=== PATIENT | male | born 1950 | race Caucasian/White ===

== ENCOUNTER → 2018-08-02 | Outpatient (CLI) | payer OTHER ==
--- NOTE | 2018-08-02 11:55 | NM ---
EXAMINATION TYPE: NM hepatobiliary w EF DATE OF EXAM: 08/02/2018 COMPARISON: Gallbladder ultrasound 07/27/2018 HISTORY: Acute cholecystitis TECHNIQUE: After the intravenous administration of 5.19 mCi Tc 99m Mebrofenin hepatobiliary scintigra phy is performed. Immediate images post injection. FINDINGS: There is satisfactory initial accumulation of tracer by the liver. The gallbladder is visualized wit hin 10 minutes. The small bowel activity is noted within 38 minutes. At one hour 8 ounces of oral e nsure plus is given to mimic CCK and gallbladder ejection fraction is calculated at 20 %, abnormal. IMPRESSION: Abnormal low gallbladder ejection fraction suggests gallbladder dyskinesia
== END | disposition home or self-care (01) ==
LOC: RADNMMAIN 06:34
PROVIDERS: ATTEND Nurse Practitioner Acute Care
DX: R94.8 Abnormal results of function studies of other organs and systems (principal)
CPT/HCPCS: 78226; A9537

== ENCOUNTER 2018-08-20 07:31 | Day surgery (SDC) | payer OTHER ==
[2018-08-17 10:10] VITALS: BMI 35.7
[~2018-08-20 07:31] MED LIST: DEXAMETHASONE SOD PHOSPHATE 10 MG/ML 1 ML VIAL IV ONE; HEPARIN SODIUM,PORCINE 5,000 UNIT/ML 1 ML VIAL SQ ONE; LACTATED RINGERS 1,000 ML IV SCH; MIDAZOLAM 2 MG/2 ML VIAL IV PRN; ONDANSETRON 4 MG/2 ML VIAL IVP ONE; ceFAZolin IN SWFI 2 GM/20 ML SYRINGE IVP ONE
--- NOTE | 2018-08-20 09:00 | P.GSHP ---
History of Present Illness H&P Date: 08/20/18 Chief Complaint: Right upper quadrant pain This is a 68-year-old male presents today for laparoscopic cholestatic. Patient has issues with right quadrant pain. Recently found have gallstones. Past Medical History Past Medical History: Hyperlipidemia, Osteoarthritis (OA) Additional Past Medical History / Comment(s): frequent diarrhea History of Any Multi-Drug Resistant Organisms: None Reported Past Surgical History: Appendectomy Additional Past Surgical History / Comment(s): colonoscopy Past Anesthesia/Blood Transfusion Reactions: No Reported Reaction Smoking Status: Former smoker - Past Family History Mother Sister(s) Family Medical History: Cancer Additional Family Medical History / Comment(s): breast Brother(s) Family Medical History: Cancer Additional Family Medical History / Comment(s): lymphoma Medications and Allergies Home Medications Medication Instructions Recorded Confirmed Type Aspirin 81 mg PO DAILY 08/17/18 08/20/18 History Atorvastatin [Lipitor] 20 mg PO DAILY 08/17/18 08/20/18 History Glucosam/Guy-Msm1/C/Niranjan/Bosw 2 each PO DAILY 08/17/18 08/20/18 History [Glucosamine-Chondroitin Tablet] [place]-3 Fatty Acids/Fish Oil [Fish 2 each PO DAILY 08/17/18 08/20/18 History Oil 1,000 mg Softgel] Pnv No.95/Ferrous Fum/Folic AC 1 each PO DAILY 08/17/18 08/20/18 History [ Multivitamin Tablet] Allergies Allergy/AdvReac Type Severity Reaction Status Date / Time No Known Allergies Allergy Verified 08/20/18 08:23 Surgical - Exam Vital Signs Temp Pulse Resp BP Pulse Ox 98.0 F 64 16 131/75 98 08/20/18 08:13 08/20/18 08:13 08/20/18 08:13 08/20/18 08:13 08/20/18 08:13 - General well developed, no distress - Eyes PERRL - ENT normal pinna - Neck no masses - Respiratory normal expansion - Cardiovascular Rhythm: regular - Abdomen Abdomen: soft, non tender Assessment and Plan Assessment: Cholelithiasis We'll perform laparoscopic cholecystectomy
[2018-08-20] MEDS ORDERED: ePHEDrine SULFATE/0.9% NACL/PF 50 MG/5 ML SYRINGE IV ONE (09:16)
[2018-08-20] MEDS ORDERED: ROCURONIUM BROMIDE 10 MG/ML 10 ML VIAL IV ONE (09:16)
[2018-08-20] MEDS ORDERED: LIDOCAINE 1% INJ 10MG/ML (20 ML MDV) ONE (09:16)
[2018-08-20] MEDS ORDERED: KETOROLAC 30 MG/ML 1 ML VIAL ONE (09:16)
[2018-08-20] MEDS ORDERED: NEOSTIGMINE 1 MG/ML 10 ML VIAL ONE (09:16)
[2018-08-20] MEDS ORDERED: SUCCINYLCHOLINE CHLORIDE 100 MG/5 ML SYR IV ONE (09:16)
[2018-08-20] MEDS ORDERED: GLYCOPYRROLATE 0.2 MG/ML 2 ML VIAL ONE (09:16)
[2018-08-20] MEDS ORDERED: MIDAZOLAM 2 MG/2 ML VIAL ONE (09:16)
[2018-08-20] MEDS ORDERED: PROPOFOL 10 MG/ML 20 ML VIAL IV ONE (09:16)
[2018-08-20] MEDS ORDERED: fentaNYL (PF) 50 MCG/ML 2 ML AMP ONE (09:16)
[2018-08-20] MEDS ORDERED: SODIUM CHLORIDE 0.9% 50 ML with ceFAZolin 2,000 MG IV ONE ×2 (09:18)
[2018-08-20] MEDS ORDERED: BUPIVACAIN-EPI 0.5%-1:200,000 30 ML VIAL SQ ONE (09:39)
[2018-08-20] MEDS ORDERED: LACTATED RINGERS 1,000 ML IV ONE (10:02)
[2018-08-20 10:26] VITALS: TEMP 97.4
[2018-08-20] MEDS: HYDROmorphone 0.5 MG/0.5 ML SYRINGE IVP PRN ×2 (10:37→10:42)
--- NOTE | 2018-08-20 10:40 | P.OP ---
Date of Procedure: 08/20/18 Preoperative Diagnosis: Cholelithiasis Postoperative Diagnosis: Cholecystitis Meckel's diverticulum Procedure(s) Performed: Laparoscopic cholecystectomy Anesthesia: LOUISE Surgeon: Elio Sierra Estimated Blood Loss (ml): 5 Pathology: other (Gallbladder) Condition: stable Disposition: PACU Description of Procedure: The patient was placed on the operating table. The patient received a general endotracheal tube anesthesia. The patients abdomen was prepped and draped in the usual sterile fashion. Through an infraumbilical stab incision, the fascia of the anterior abdominal wall was grasped with a pair of Kochers and then the Veress needle was placed in the peritoneal cavity. Position of the Veress needle was confirmed with positive drop test. The abdomen was then insufflated. After adequate insufflation, the 10 mm trocar was placed in the peritoneal cavity. Following this the laparoscope was placed in the peritoneal cavity. The patient was placed in the head-up, right side up position and then a 5 mm trocar was placed in the right lateral and right subcostal position under direct visualization. A 8 mm trocar was placed in the epigastric position. The patient appeared to have a abnormalities small bowel. This was grasped and it appeared to be a Meckel's diverticulum. There was no significant inflammation around the diverticulum. He was elected to leave the diverticulum and observe the patient postoperative. The diverticulum was photographed. The gallbladder was grasped in the fundus and infundibulum. Traction on the gallbladder was placed in the lateral and the cephalad positions. The triangle of Calot was visualized.. The cystic duct was bluntly dissected until the union of the cystic duct and common bile duct was seen. The cystic duct was then divided and sealed with the Harmonic scissors. A PDS Endoloop was then placed throughout the cystic duct stump. The cystic artery divided and sealed with the Harmonic scissors. The gallbladder was then removed from the liver bed using Harmonic scissors. The gallbladder was then extracted through the epigastric port site. Operative field was checked for any bleeding spots and Harmonic scissors was used to coagulate the liver bed. The abdomen was irrigated. The trocars were removed. The skin was closed using interrupted 3- 0 Vicryl suture. Dermabond dressing were applied. The patient tolerated the procedure well.
[2018-08-20 11:15] VITALS: RESP 18
[2018-08-20 11:46] VITALS: BP 123/75; PULSE 83
== END 2018-08-20 12:33 | disposition home or self-care (01) ==
LOC: OR 07:31
PROVIDERS: ATTEND Surgery
DX: K80.10 Calculus of gallbladder with chronic cholecystitis without obstruction (principal); Q43.0 Meckel's diverticulum (displaced) (hypertrophic); E78.5 Hyperlipidemia, unspecified; M19.90 Unspecified osteoarthritis, unspecified site; K21.9 Gastro-esophageal reflux disease without esophagitis; Z87.891 Personal history of nicotine dependence; Z79.82 Long term (current) use of aspirin; Z79.899 Other long term (current) drug therapy
CPT/HCPCS: 88304; 47562; J2250; J1644; J1100; J2710; J2405; J2001; J3010; J1885; J0690; J0330; J2704; J1170

== ENCOUNTER 2019-08-27 09:39 | Day surgery (SDC) | payer OTHER ==
[2019-08-22 17:21] VITALS: BMI 35.7
[~2019-08-27 09:39] MED LIST changes: -DEXAMETHASONE SOD PHOSPHATE 10 MG/ML 1 ML VIAL IV ONE; -HEPARIN SODIUM,PORCINE 5,000 UNIT/ML 1 ML VIAL SQ ONE; -MIDAZOLAM 2 MG/2 ML VIAL IV PRN; -ONDANSETRON 4 MG/2 ML VIAL IVP ONE; -ceFAZolin IN SWFI 2 GM/20 ML SYRINGE IVP ONE
[2019-08-27 09:56] VITALS: RESP 16; TEMP 97.5
[2019-08-27] MEDS ORDERED: LIDOCAINE 1% 20 ML VIAL (10MG/ML) FOR IV START INTRADERMA ONE (10:09)
[2019-08-27] MEDS ORDERED: LIDOCAINE 1% INJ 10MG/ML (20 ML MDV) ONE (10:26)
[2019-08-27] MEDS ORDERED: PROPOFOL 10 MG/ML 20 ML VIAL IV ONE (10:26)
--- NOTE | 2019-08-27 10:27 | P.GSHP ---
History of Present Illness H&P Date: 08/27/19 Chief Complaint: History of colon polyps, diarrhea This a 69-year-old male who's had issues with diarrhea. Patient presents today for colonoscopy. He's had a. History of colon polyps. Past Medical History Past Medical History: Hyperlipidemia, Osteoarthritis (OA) Additional Past Medical History / Comment(s): Frequent diarrhea since 204, Hx colon polyps. History of Any Multi-Drug Resistant Organisms: None Reported Past Surgical History: Appendectomy, Cholecystectomy Additional Past Surgical History / Comment(s): Colonoscopy x2. Yinka Cataracts Past Anesthesia/Blood Transfusion Reactions: No Reported Reaction Smoking Status: Former smoker - Past Family History Mother Sister(s) Family Medical History: Cancer Additional Family Medical History / Comment(s): breast Brother(s) Family Medical History: Cancer Additional Family Medical History / Comment(s): lymphoma Medications and Allergies Home Medications Medication Instructions Recorded Confirmed Type Atorvastatin [Lipitor] 40 mg PO HS 08/17/18 08/27/19 History Glucosam/Guy-Msm1/C/Niranjan/Bosw 2 each PO DAILY 08/17/18 08/27/19 History [Glucosamine-Chondroitin Tablet] [place]-3 Fatty Acids/Fish Oil [Fish 2,400 each PO DAILY 08/17/18 08/27/19 History Oil 1,000 mg Softgel] Pnv No.95/Ferrous Fum/Folic AC 1 each PO DAILY 08/17/18 08/27/19 History [ Multivitamin Tablet] Allergies Allergy/AdvReac Type Severity Reaction Status Date / Time No Known Allergies Allergy Verified 08/27/19 09:58 Surgical - Exam Vital Signs Temp Pulse Resp BP Pulse Ox 97.5 F L 69 16 132/72 96 08/27/19 09:55 08/27/19 09:55 08/27/19 09:55 08/27/19 09:55 08/27/19 09:55 - General well developed, well nourished, no distress - Eyes PERRL - ENT normal pinna, normal nares - Neck no masses - Respiratory normal expansion - Cardiovascular Rhythm: regular - Abdomen Abdomen: soft, non tender Assessment and Plan Assessment: Diarrhea History of colon polyps We'll perform colonoscopy.
--- NOTE | 2019-08-27 10:43 | P.OP ---
Date of Procedure: 08/27/19 Preoperative Diagnosis: Diarrhea History: Polyps Postoperative Diagnosis: Normal colonoscopy Random rectal biopsy Internal hemorrhoids Procedure(s) Performed: Colonoscopy Anesthesia: MAC Surgeon: Elio Sierra Pathology: other (Rectum) Condition: stable Disposition: PACU Description of Procedure: The patient's placed on the endoscopy table in the lateral position. He received IV sedation. Digital rectal exam was performed which revealed no rebound. The prostate was symmetric without nodules. The flexible colonoscope was then placed patient anus and passed throughout the entire colon. Ileocecal valve was visualized. The cecum, ascending and transverse colon appeared normal. The descending and sigmoid colon appeared normal. The scope was then brought back the rectum and this appeared normal. There is no evidence of any inflammation. A random rectal mass performed. Scope was withdrawn and internal hemorrhoids are noted scope was withdrawn for patient.
[2019-08-27 11:04] VITALS: BP 118/83; PULSE 68
== END 2019-08-27 11:44 | disposition home or self-care (01) ==
LOC: ORWHC2ENDO 09:39
PROVIDERS: ATTEND Surgery
DX: K52.89 Other specified noninfective gastroenteritis and colitis (principal); K64.8 Other hemorrhoids; Z86.010 Personal history of colon polyps; Z87.891 Personal history of nicotine dependence; M19.90 Unspecified osteoarthritis, unspecified site; E78.5 Hyperlipidemia, unspecified; Z90.49 Acquired absence of other specified parts of digestive tract; Z98.42 Cataract extraction status, left eye; Z98.41 Cataract extraction status, right eye
CPT/HCPCS: 88305; 45380; J2001; J2704

== ENCOUNTER → 2020-01-09 | Outpatient (CLI) | payer OTHER ==
--- NOTE | 2020-01-09 14:18 | CTL ---
EXAMINATION TYPE: CT Low Dose Lung DATE OF EXAM ORDERED: 01/09/2020 HISTORY: Personal history of tobacco use. Lung cancer screening CT DLP: [address] CTDI: 2.49 mGy Automated exposure control for dose reduction was used. SCREENING VISIT: Initial COMPARISON: None TECHNIQUE: Low dose computed tomography scan was performed through the chest at 1 mm thick sections a nd reconstructed images in the coronal plane at [address] DIAGNOSTIC QUALITY: Limited, but interpretable FINDINGS: LUNG NODULES: None. LUNGS: COPD: Severity: None Fibrosis: Severity: None Lymph nodes: None Other findings: None RIGHT PLEURAL SPACE: Effusion: None Calcification: None Thickening: None Pneumothorax: None LEFT PLEURAL SPACE: Effusion: None Calcification: None Thickening: None Pneumothorax: None HEART: Heart Size: Normal Coronary calcification: Mild Pericardial effusion: None OTHER FINDINGS: Upper abdomen: Normal Bony thorax: Normal Supraclavicular region: Normal Other: Ascending thoracic aorta at the level the main pulmonary artery measures 4.5 cm. The main pul monary artery at the bifurcation measures 3.0 cm. IMPRESSION: No suspicious changes low-dose CT chest FOLLOW UP CT CHEST RECOMMENDATION: Follow-up low-dose CT chest [address] LUNG RAD: 1
== END ==
LOC: RADCTMAIN 09:59
DX: Z12.2 Encounter for screening for malignant neoplasm of respiratory organs (principal); Z87.891 Personal history of nicotine dependence

== ENCOUNTER → 2021-07-14 | Outpatient (CLI) | payer OTHER ==
--- NOTE | 2021-07-14 11:40 | CTL ---
EXAMINATION TYPE: CT Low Dose Lung DATE OF EXAM ORDERED: 07/14/2021 HISTORY: 71-year-old male Z87.891, personal history of tobacco use. Lung cancer screening CT DLP: 117.[address] CTDI: 3.5 mGy Automated exposure control for dose reduction was used. SCREENING VISIT: 1.5 year follow-up COMPARISON: 01/09/2020 TECHNIQUE: Low dose computed tomography scan was performed through the chest with coronal and sagitta l reconstructions. CT DIAGNOSTIC QUALITY: Satisfactory FINDINGS: Heart normal size without pericardial effusion. Borderline aneurysm ascending aorta 4.0 cm, unchanged. Conventional branching anatomy. Mild ectasia o f the upper descending thoracic aorta at 3.1 cm, unchanged. No thoracic lymphadenopathy by CT size criteria. Mild bilateral gynecomastia. Mild bronchial wall thickening. Mild emphysematous change. Mild biapical pleural-parenchymal scarring . Scattered pulmonary nodules present measuring up to 7 mm (refer to axial image 136). No new or enlarg ing pulmonary nodules are identified. Some minimal endobronchial mucous plugging in the left lower lobe redemonstrated. Visualized upper abdomen shows mild to moderate fatty stool. Bones: Mild to moderate anterior endplate spondylosis mid to lower thoracic spine. IMPRESSION: 1. LungRADS 2, benign; scattered 7 mm and smaller pulmonary nodules, all stable for 1.5 years compati ble with a benign etiology. 2. COPD with mild emphysema. Recommend smoking cessation. 3. Mild aneurysm ascending aorta 4.[address] LUNG RAD AND CT CHEST RECOMMENDATION: Lung-Rad 2 Benign Appearance or Behavior: Continue annual sc reening with LDCT in 12 months. S Modifier (other clinically significant findings): S (mild ascending aortic aneurysm at 4.0 cm).
== END | disposition home or self-care (01) ==
LOC: RADCTMAIN 10:33
DX: Z12.2 Encounter for screening for malignant neoplasm of respiratory organs (principal); J43.9 Emphysema, unspecified; R91.8 Other nonspecific abnormal finding of lung field; Z87.891 Personal history of nicotine dependence
CPT/HCPCS: 71271

== ENCOUNTER → 2022-07-15 | Outpatient (CLI) | payer OTHER ==
--- NOTE | 2022-07-15 10:27 | CTL ---
EXAMINATION TYPE: CT Low Dose Lung DATE OF EXAM ORDERED: 07/15/2022 HISTORY: Lung cancer screening CT DLP: 136.[address] CTDI: 4.00 mGy Automated exposure control for dose reduction was used. SCREENING VISIT: Subsequent COMPARISON: 07/14/2021, 01/09/2020 TECHNIQUE: Low dose computed tomography scan was performed through the chest at 1 mm thick sections a nd reconstructed images in multiple planes at 1 mm and [address] DIAGNOSTIC QUALITY: Satisfactory FINDINGS: LUNG NODULES: Right upper lobe peripheral 2 mm nodule image 162 unchanged dating back to 2019. Right middle lobe 4 mm pulmonary nodule image 22, stable back to 2019. Right lower lobe superior segment 9 and 6 mm pulmonary nodules appear grossly stable from immediate p rior on 07/14/2021. LUNGS: COPD: Severity: Mild Fibrosis: Severity: None Lymph nodes: None Other findings: Streaky atelectasis/scarring in the posterior aspect of the left lower lobe RIGHT PLEURAL SPACE: Effusion: None Calcification: None Thickening: None Pneumothorax: None LEFT PLEURAL SPACE: Effusion: None Calcification: None Thickening: None Pneumothorax: None HEART: Heart Size: Mildly Enlarged Coronary Calcification: Moderate Pericardial Effusion: None Aortic valve calcifications of moderate severity. OTHER FINDINGS: Upper abdomen: None Bony thorax: Mild disc degeneration changes. Supraclavicular region: None Other: Mild gynecomastia changes bilaterally. IMPRESSION: 1. Stable pulmonary nodules dating back to 2019 measuring up to 9 mm in the right lower lobe posteri refugio. 2. Aortic valve consultations of moderate severity, and moderate coronary artery atherosclerosis. CT LUNG RAD AND CT CHEST RECOMMENDATION: Lung-Rad 2 Benign Appearance or Behavior: Continue annual sc reening with LDCT in 12 months. S Modifier (other clinically significant findings): S, aortic valve consultations of moderate severit y, and moderate coronary artery atherosclerosis.
== END | disposition home or self-care (01) ==
LOC: RADCTMAIN 09:47
DX: Z12.2 Encounter for screening for malignant neoplasm of respiratory organs (principal); I25.10 Atherosclerotic heart disease of native coronary artery without angina pectoris; R91.8 Other nonspecific abnormal finding of lung field; Z87.891 Personal history of nicotine dependence
CPT/HCPCS: 71271

== ENCOUNTER 2025-01-13 05:39 | Day surgery (SDC) | payer OTHER ==
[2025-01-07 14:55] VITALS: BMI 36.5
[~2025-01-13 05:39] MED LIST changes: -LACTATED RINGERS 1,000 ML IV SCH; +LIDOCAINE 1% (10MG/ML) FOR IV START INTRADERMA PRN; +TRANEXAMIC 1,000 MG/100ML-NACL 1,000 MG in SALINE 1 100ML.BAG IVPB PRN
[2025-01-13] MEDS: MELOXICAM 7.5 MG TAB PO PRN (06:42)
[2025-01-13] MEDS: ACETAMINOPHEN TAB 500 MG TAB PO PRN (06:42)
[2025-01-13] MEDS: DEXAMETHASONE SOD PHOSPHATE 4 MG/ML 1 ML VIAL IV ONE (06:43)
[2025-01-13] MEDS: ONDANSETRON 4 MG/2 ML VIAL IVP ONE (06:43)
[2025-01-13] MEDS: LACTATED RINGERS 1,000 ML IV ONE ×2 (06:46→09:03)
[2025-01-13] MEDS ORDERED: HYDROmorphone 0.5 MG/0.5 ML SYRINGE IVP PRN ×2 (07:00→09:44)
[2025-01-13] MEDS: MIDAZOLAM 2 MG/2 ML VIAL IVP ONE (07:06)
--- NOTE | 2025-01-13 07:48 | HP ---
HISTORY AND PHYSICAL DATE OF SURGERY: 01/13/2025. HISTORY OF PRESENT ILLNESS: Nnamdi Mi is a 74-year-old gentleman seen with symptomatic right knee osteoarthritis. We discussed the options regarding treatment. He elected to proceed with right total knee arthroplasty. Consent regarding procedure obtained, cardiac clearance was provided by Dr. Lamar. PAST MEDICAL HISTORY: Hyperlipidemia and cardiovascular disease. PAST SURGICAL HISTORY: Appendectomy. MEDICATIONS: 1. Atropine. 2. Simvastatin. ALLERGIES: None reported. SOCIAL HISTORY: The patient denies tobacco use. PHYSICAL EVALUATION OF THE RIGHT KNEE: Range of motion is -3/4 to 125 degrees. There is a large effusion present. Tenderness along the medial and lateral joint lines. Crepitus of the lateral patellofemoral compartments with range of motion. There is pain with patellofemoral compression. Ligaments are stable. Hip rotation is without pain. Distal neurovascular exam is intact. IMAGING STUDIES: Radiographs of the right knee revealed severe osteoarthritic changes. IMPRESSION: 1. Right knee osteoarthritis. 2. Hypertension. 3. Hyperlipidemia. PLAN: Right total knee arthroplasty. MMODL / IJN: [id number] /
[2025-01-13] MEDS ORDERED: fentaNYL (PF) 50 MCG/ML 2 ML AMP ONE (07:50)
[2025-01-13] MEDS ORDERED: TRANEXAMIC 1,000 MG/100ML-NACL PREMIX BAG ONE (07:50)
[2025-01-13] MEDS ORDERED: PROPOFOL 10 MG/ML 20 ML VIAL IV ONE (07:50)
[2025-01-13] MEDS ORDERED: MIDAZOLAM 2 MG/2 ML VIAL ONE (07:50)
[2025-01-13] MEDS ORDERED: DEXAMETHASONE SOD PHOSPHATE 4 MG/ML 1 ML VIAL ONE (07:50)
[2025-01-13] MEDS ORDERED: PHENYLEPHRINE 10 MG/ML VIAL ONE (07:50)
[2025-01-13] MEDS ORDERED: ROPIVACAINE 5 MG/ML 30 ML VIAL ONE (07:50)
[2025-01-13] MEDS: ceFAZolin 1,000 MG in SODIUM CHLORIDE 0.9% 1,000 ML IRRIGATION ONE (08:13)
[2025-01-13] MEDS ORDERED: ONDANSETRON 4 MG/2 ML VIAL IVP PRN (09:44)
[2025-01-13] MEDS ORDERED: NALOXONE 0.4 MG/ML 1 ML VIAL IV PRN (09:44)
--- NOTE | 2025-01-13 09:44 | P.OP ---
Date of Procedure: 01/13/25 Preoperative Diagnosis: Right knee osteoarthritis Postoperative Diagnosis: Right knee osteoarthritis Procedure(s) Performed: Right total knee arthroplasty Implants: 1. DePuy attune size 7 right cruciate retaining cemented femur 2. DePuy attune size 8 fixed-bearing cemented tibial baseplate 3. DePuy attune size 7 fixed-bearing cruciate retaining 10 mm polyethylene tibial insert 4. DePuy attune 41 mm all polyethylene cemented patella Anesthesia: regional (Adductor canal catheter, iPAQ block), spinal Surgeon: Jose Luis Everett [employer] #1: Kota Mackenzie Estimated Blood Loss (ml): 45 Pathology: none sent Condition: stable Disposition: PACU Indications for Procedure: 74-year-old patient seen with symptomatic right knee osteoarthritis. After having treatment options discussed, he elected to proceed with total knee arthroplasty. Operative Findings: See description of procedure Description of Procedure: Patient was taken to the operative suite after having an adductor canal catheter placed by the department of anesthesia. Patient underwent a spinal anesthetic by the department of anesthesia. Patient was given preoperative IV intake antibiotics and TXA. A well-padded tourniquet was placed about the general lower extremity. The lower extremity was then prepped and draped in the normal sterile orthopedic fashion. The extremity was elevated, a tourniquet was insufflated to 300. A standard anterior incision was made sharply through skin. Dissection was taken down through the subcutaneous soft tissues down to the extensor mechanism. A medial arthrotomy was performed, patella was everted and knee was flexed. There was advanced osteoarthritis noted. I introduced my distal intramedullary femoral drill. I then introduced the distal femoral cutt ing jig. Osbaldo GIBSON secured the cutting jig with 2 pins. I held retractors in position while Osbaldo GIBSON performed the distal femoral resection through the guide area we now removed her distal femoral cutting guide. We now placed our 4-in-1 femoral cutting block and positioned and it was secured with 2 pins by Osbaldo GIBSON while I held the block in position. The distal femoral finishing was now completed. A proximal tibial cutting guide was positioned. I held the guide in the appropriate position with both hands well Osbaldo GIBSON inserted stabilizing pins into the guide. Proximal tibial cut was made. We now placed a trial femoral component into position, along with an appropriate size tibial tray and insert. We now took the knee through range of motion and had full extension good flexion and good overall soft tissue balance noted. The patella was everted and stabilized with 2 towel clips held by Osbaldo GIBSON while I performed a flush with patellar quad tendon utilizing a fresh sawblade. We templated the patella, appropriate drill holes were made. An appropriate trial patella was positioned, knee was taken through full range of motion with the patella tracking very nicely. The trial patella was removed. Drill holes were made through the femoral component. All trial components were removed after marking off the appropriate rotation of the tibia. Retractors were now positioned along the proximal tibia. An appropriate keel punch was made with the appropriate size tibial guide by myself on Osbaldo GIBSON assisted by holding retractors. At this point appropriate size implants were chosen and opened. The joint was irrigated copiously with pulse lavage mechanical irrigation. The wound was irrigated with pulse lavage mechanical irrigation. We mixed antibiotic methylmethacrylate. We placed the knee into flexion. We placed multiple retractors assisted by Osbaldo GIBSON to expose the proximal tibia. Once the methyl methacrylate was ready, the tibial component was cemented into place removing any excess methylmethacrylate form by both myself and Osbaldo GIBSON. The femoral component was cemented into place removing the removing any excess methylmethacrylate performed by both myself and Osbaldo GIBSON. We then inserted the appropriate size polyethylene tibial insert. We made sure that it was locked into position. We took the knee into full extension, and then back in a flexion making sure we had removed any excess methylmethacrylate. The patellar component was then cemented down and secured with clamp. Excess methylmethacrylate removed. We kept the knee in full extension, patellar clamp in position until methylmethacrylate had hardened. Once it had hardened the patellar clamp was removed. The knee was taken through full range of motion. The patella tracked nicely. There was good soft tissue balancing. The tourniquet was now released. Additional hemostasis was achieved via electrocautery. A second gram of TXA was given. The wound again was irrigated with pulse lavage mechanical irrigation. The extensor mechanism was repaired with Ethibond suture. We checked the repair with range of motion and it was stable. The subcutaneous soft tissues were repaired with Vicryl in layers. The skin was approximated with pernio/Dermabond. Sterile dressings were applied followed by loose web roll and Dieter bandage. The patient was transferred to a bed, and taken to recovery in stable and satisfactory condition. Osbaldo GIBSON assisted with this complex procedure.
[2025-01-13] MEDS: ROPIVACAINE 1,100 MG, SODIUM CHLORIDE 0.9% 500 ML 330 ML, EMPTY PAIN BALL 1 EACH MISCELLANE PRN (10:20)
--- NOTE | 2025-01-13 10:35 | XR ---
EXAMINATION TYPE: XR knee limited RT DATE OF EXAM: 01/13/2025 10:20 AM COMPARISON: None. CLINICAL INDICATION: Male, 74 years old with history of Evaluation for Postop abnormality and alignme nt, pain TECHNIQUE: Portable AP and crosstable lateral views of the right knee are obtained immediately posto peratively. FINDINGS: Metallic hardware from total right knee arthroplasty is seen and appears satisfactory in alignment and position. There is evidence of recent surgery with diffuse subcutaneous gas and soft t issue swelling noted. IMPRESSION: METALLIC HARDWARE FROM TOTAL right KNEE ARTHROPLASTY IS SATISFACTORY IN ALIGNMENT. [facility], , 01/13/2025 10:33 AM
--- NOTE | 2025-01-13 12:42 | P.ANPRN ---
Procedure Note - Anesthesia - Nerve Block Performed Right Adductor Canal Infusion Time Out Performed: Yes Date of Procedure: 01/13/25 Procedure Start Time: 07:06 Procedure Stop Time: 07:10 Location of Patient: PreOp Indication: Acute Post-Operative Pain, Requested by Surgeon Sedation Type: Sedate with meaningful contact maintained Preparation: Sterile Prep, Sterile Dressing Position: Supine Catheter: Indwelling Needle Types: Pajunk Needle Gauge: 21 Ultrasound used to visualize needle placement: Yes Ultrasound used to observe medication spread: Yes Blood Aspirated: No Pain Paresthesia on Injection Noted: No Resistance on Injection: Normal Image Stored and Saved: Yes Events: Uneventful and Well Tolerated (Ropivacaine 0.5% 20 cc plus dexamethasone 4 mg)
--- NOTE | 2025-01-13 12:43 | P.ANPRN ---
Procedure Note - Anesthesia - Nerve Block Performed Right iPack Single Time Out Performed: Yes Date of Procedure: 01/13/25 Procedure Start Time: 07:11 Procedure Stop Time: 07:12 Indication: Acute Post-Operative Pain, Requested by Surgeon Sedation Type: Sedate with meaningful contact maintained Preparation: Sterile Prep Position: Left Lateral Needle Types: Pajunk Needle Gauge: 21 Ultrasound used to visualize needle placement: Yes Ultrasound used to observe medication spread: Yes Blood Aspirated: No Pain Paresthesia on Injection Noted: No Resistance on Injection: Normal Image Stored and Saved: Yes Events: Uneventful and Well Tolerated (Ropivacaine 0.5% 20 cc plus dexamethasone 4 mg)
[2025-01-13] MEDS: HYDROmorphone 0.5 MG/0.5 ML SYRINGE IVP PRN ×2 (13:35→22:38)
[2025-01-13] MEDS: HYDROcodone/APAP 5-325MG 1 EACH TAB PO PRN (15:04)
--- NOTE | 2025-01-13 16:59 | P.CONS ---
History of Present Illness - Reason for Consult Consult date: 01/13/25 Medical Management Requesting physician: Jose Luis Everett - History of Present Illness History of Presenting Illness: Patient is a very pleasant 74-year-old male with a past medical history of hyperlipidemia and osteoarthritis. He is currently admitted under orthopedic surgery team status post elective right total knee arthroplasty. Surgical procedure was completed by Dr. Everett secondary to severe right knee osteoarthritis. We were consulted for medical management throughout hospitalization. Patient seen and fully evaluated in room 472 shortly after returning from completion of surgical procedure. He currently reports only mild postoperative pain and stating it is controlled with current medication regimen. Denies experiencing any postoperative nausea or vomiting and reports he has pivoted to the side of the bed and urinated without any difficulties but has not yet ambulated since completion of surgical procedure. Patient denies having any headache, lightheadedness, dizziness, chest pain, palpitations, shortness of breath, or experiencing any numbness or tingling in his extremities. Review of systems: Pertinent positives and negatives as discussed in HPI, a complete review of systems was performed and all other systems are negative. Physical exam: Vital signs reviewed and stable. General: Nontoxic, no distress and appears stated age. Derm: Skin warm and dry, normal coloration for ethnicity. Head: Atraumatic, normocephalic and symmetric. Eyes: EOM's intact, no lid lag, and anicteric sclera Mouth: no lip lesions, mucus membranes moist Cardiovascular: regular rate and rhythm with normal S1S2, no murmur, positive posterior tibial pulses bilaterally, and cap refill < 2 seconds. Lungs: Respirations even, regular, and unlabored on room air. Lungs CTA bilaterally, no rhonchi, no rales, no wheezing, and no accessory muscle usage. Abdominal: soft, nontender to palpation, no guarding, no appreciable organomegaly Ext: ROM intact. No gross muscle atrophy, no edema, no contractures Neuro: Speech clear, face symmetrical and CN II-XII grossly intact with no noted focal neuro deficits Psych: Alert and oriented to person, place, time, and situation. Appropriate and pleasant affect. Assessment and Plan of Care: Status post right total knee arthroplasty -Management per primary admitting orthopedic surgery team including DVT prop hylaxis, pain management, wound/dressing management, weightbearing, and PT/OT. -Patient currently on DVT prophylaxis with aspirin 81 mg twice daily. Hyperlipidemia -Continue atorvastatin 10 mg nightly. Data and imaging reviewed: -Vital signs reviewed. Blood pressure 136/80, heart rate 68, respiratory rate 18, temp 97.6 F, and SpO2 of 95% on room air. -Reviewed operative report. Thank you for allowing us to participate in the care of this pleasant patient. Do not hesitate to contact us with questions. Someone can be reached from the [facility] hospitalist group all hours of the day at [phone] or via [employer]. Patient was seen independently by Nurse Practitioner. This document was prepared using [employer] dictation software. Please allow for errors in certified paralegal while rare they do occur. Mario Camargo NP rendered care for this patient independently, reviewed the findings and plan as documented in the note above and agree with plan. I did not physically speak with or examine the patient on this date. Past Medical History Past Medical History: Hyperlipidemia, Osteoarthritis (OA) Additional Past Medical History / Comment(s): microscopic colitis-Frequent diarrhea, covid 2023-paxlovid, Hx colon polyps History of Any Multi-Drug Resistant Organisms: None Reported Past Surgical History: Appendectomy, Cholecystectomy Additional Past Surgical History / Comment(s): Colonoscopy x2, [place] Cataracts Past Anesthesia/Blood Transfusion Reactions: No Reported Reaction Additional Past Anesthesia/Blood Transfusion Reaction / Comm: no hx blood transfusion Smoking Status: Former smoker - Past Family History Mother Sister(s) Family Medical History: Cancer Additional Family Medical History / Comment(s): breast Brother(s) Family Medical History: Cancer Additional Family Medical History / Comment(s): lymphoma Medications and Allergies Home Medications Medication Instructions Recorded Confirmed Type Glucosam/Guy-Msm1/C/Niranjan/Bosw 2 each PO DAILY 08/17/18 01/07/25 History [Glucosamine-Chondroitin Tablet] [place]-3 Fatty Acids/Fish Oil [Fish 2,400 each PO DAILY 08/17/18 01/07/25 History Oil 1,000 mg Softgel] Pnv No.95/Ferrous Fum/Folic AC 1 each PO DAILY 08/17/18 01/07/25 History [ Multivitamin Tablet] Diphenoxylate HCl/Atropine 1 - 2 tab PO QID PRN 01/07/25 01/07/25 History [Lomotil 2.5-0.025 mg Tablet] Simvastatin [Zocor] 10 mg PO HS 01/07/25 01/07/25 History Allergies Allergy/AdvReac Type Severity Reaction Status Date / Time No Known Allergies Allergy Verified 01/13/25 06:10 Physical Exam Vitals: Vital Signs Temp Pulse Pulse Resp BP BP Pulse Ox 01/13/25 14:45 78 135/73 01/13/25 14:44 97.6 F 68 18 136/80 95 01/13/25 14:15 91 116/72 01/13/25 14:00 97.6 F 68 18 136/80 95 01/13/25 13:45 75 133/83 01/13/25 13:30 75 147/78 97 01/13/25 13:15 68 136/80 94 L 01/13/25 12:00 61 16 131/68 96 01/13/25 11:30 57 L 17 114/78 95 01/13/25 11:15 57 L 17 121/74 96 01/13/25 11:00 57 L 16 126/75 97 01/13/25 10:45 61 16 97 01/13/25 10:30 60 18 111/68 97 01/13/25 10:15 61 17 102/60 100 01/13/25 09:59 98 F 65 18 108/67 100 01/13/25 07:30 66 16 145/74 97 01/13/25 06:24 98.2 F 70 16 135/76 95 Intake and Output 01/13/25 01/13/25 01/13/25 06:59 14:59 22:59 Intake Total 300 1051 Output Total 45 Balance 300 1006 Intake: IV 300 1051 Output: Estimated Blood Loss 45 Other: Weight 112.2 kg 112.2 kg
[2025-01-13] MEDS: LACTATED RINGERS 1,000 ML IV SCH (18:38)
[2025-01-13] MEDS: ASPIRIN 81 MG PO SCH (20:59)
[2025-01-13] MEDS: ATORVASTATIN 10 MG TAB PO SCH (20:59)
[2025-01-13] MEDS: SENNOSIDES-DOCUSATE SODIUM 1 EACH TAB PO SCH (21:00)
[2025-01-14 01:27] VITALS: RESP 18
[2025-01-14] MEDS: SODIUM CHLORIDE 0.9% 1,000 ML IV SCH (02:43)
[2025-01-14 04:11] LABS: Basophils % (A) 0 %; Eosinophils % (A) 0 %; HCT 38.2 % (39.0-53.0); HGB 12.1 gm/dL (13.0-17.5); Lymphocytes % (A) 9 %; MCH 32.5 pg (25.0-35.0); MCHC 31.8 g/dL (31.0-37.0); MCV 102.4 fL (80.0-100.0); Mean Platelet Volume 8.3; Monocytes # (A) 0.8 k/uL (0-1.0); Monocytes % (A) 7 %; Neutrophils # (A) 9.5 k/uL (1.3-7.7); Neutrophils % (A) 83 %; Platelet Count 196 k/uL (150-450); RBC 3.73 m/uL (4.30-5.90); RDW 12.2 % (11.5-15.5); WBC 11.4 k/uL (3.8-10.6)
[2025-01-14] MEDS: HYDROcodone/APAP 7.5-325MG 1 EACH TAB PO PRN (06:04)
[2025-01-14 07:45] VITALS: BP 111/66; PULSE 71; TEMP 98.1
--- NOTE | 2025-01-14 07:55 | P.PN ---
Progress Note - Text Adequate analgesia. No anesthetic complication.
[2025-01-14] MEDS ORDERED: NON FORMULARY DRUG (Omega-3 Fatty Acids/Fish Oil [Fish Oil 1,000 Mg Softgel] 1 EACH Capsul PO SCH (09:00)
[2025-01-14] MEDS: MULTIVITAMINS, THERA 1 EACH TAB PO SCH (09:20)
--- NOTE | 2025-01-14 11:34 | P.PN ---
Subjective Progress Note Date: 01/14/25 Hospital course: Patient is a very pleasant 74-year-old male with a past medical history of hyperlipidemia and osteoarthritis. He is currently admitted under orthopedic surgery team status post elective right total knee arthroplasty. Surgical procedure was completed by Dr. Everett secondary to severe right knee osteoarthritis. We were consulted for medical management throughout hospitalization. Physical exam: Patient seen and fully evaluated at bedside this morning. He is postoperative day 1. Patient is doing well and reports only mild postoperative pain controlled with current pain medication regimen. He denies having any other complaints including headache, lightheadedness, dizziness, chest pain, shortness of breath, cough or congestion, nausea or vomiting. Vital signs reviewed and stable. General: Nontoxic, no distress and appears stated age. Derm: Skin warm and dry, normal coloration for ethnicity. Head: Atraumatic, normocephalic and symmetric. Eyes: EOM's intact, no lid lag, and anicteric sclera Mouth: no lip lesions, mucus membranes moist Cardiovascular: regular rate and rhythm with normal S1S2, no murmur, positive posterior tibial pulses bilaterally, and cap refill < 2 seconds. Lungs: Respirations even, regular, and unlabored on room air. Lungs CTA bilaterally, no rhonchi, no rales, no wheezing, and no accessory muscle usage. Abdominal: soft, nontender to palpation, no guarding, no appreciable organomegaly Ext: ROM intact. No gross muscle atrophy, no edema, no contractures Neuro: Speech clear, face symmetrical and CN II-XII grossly intact with no noted focal neuro deficits Psych: Alert and oriented to person, place, time, and situation. Appropriate and pleasant affect. Assessment and Plan of Care: Status post right total knee arthroplasty -Management per primary admitting orthopedic surgery team including DVT prophylaxis, pain management, wound/dressing management, weightbearing, and PT/OT. -Patient currently on DVT prophylaxis with aspirin 81 mg twice daily. Acute postoperative blood loss anemia -This is a stable and expected finding with preoperative hemoglobin of 14.1 and postoperative hemoglobin of 12.1. No need for transfusion or any further interventions at this time. Leukocytosis -WBC count 11.4. This is believed to be reactive secondary to surgical procedure as there are no signs of infection. No need for further intervention at this time. Hyperlipidemia -Continue atorvastatin 10 mg nightly. Data and imaging reviewed: -Vital signs reviewed. Blood pressure 111/66, heart rate 71, respiratory rate 18, temp 98.1 F, and SpO2 of 95% on room air. -Postoperative labs reviewed. Showing acute postoperative blood loss anemia with postoperative hemoglobin of 12.1 and preoperative hemoglobin of 14.1. And mild leukocytosis with WBC count of 11.4. Patient is medically optimized for discharge once cleared by primary admitting orthopedic surgery team. Medication reconciliation was completed for discharge. Thank you for allowing us to participate in the care of this pleasant patient. Do not hesitate to contact us with questions. Someone can be reached from the [facility] hospitalist group all hours of the day at [phone] or via [employer]. Patient was seen independently by Nurse Practitioner. This document was prepared using [employer] dictation software. Please allow for errors in patient service technician pst while rare they do occur. Mario Camargo NP rendered care for this patient independently, reviewed the findings and plan as documented in the note above and agree with plan. I did not physically speak with or examine the patient on this date. Objective - Vital Signs Vital signs: Vital Signs Temp 98.1 F 01/14/25 07:04 Pulse 71 01/14/25 07:04 Resp 18 01/14/25 07:04 BP 111/66 01/14/25 07:04 Pulse Ox 95 01/14/25 07:04 FiO2 Intake & Output 01/13/25 01/14/25 01/14/25 18:59 06:59 18:59 Intake Total 1051 240 Output Total 495 Balance 556 240 Weight 112.2 kg Intake: IV 1051 Oral 240 Output: Urine 450 Estimated Blood Loss 45 Other: Voiding Method Urinal # Voids 2 - Labs CBC & Chem 7: 01/14/25 03:31 Labs: Abnormal Lab Results - Last 24 Hours (Table) 01/14/25 Range/Units 03:31 WBC 11.4 H (3.8-10.6) k/uL RBC 3.73 L (4.30-5.90) m/uL Hgb 12.1 L (13.0-17.5) gm/dL Hct 38.2 L (39.0-53.0) % MCV 102.4 H (80.0-100.0) fL Neutrophils # 9.5 H (1.3-7.7) k/uL
--- NOTE | 2025-01-14 12:32 | P.DS ---
Providers Expected date of discharge: 01/14/25 Attending physician: Jose Luis Everett Consults: 01/13/25 09:44 Consult Physician Routine Consulting Provider: Cathy Jenkins Consult Reason/Comments: Medical management Do you want consulting provider notified?: Yes [facility] care physician: [facility] Course: Date of admission: 01/13/2025 Date of discharge: 01/14/2025 Admission diagnosis: Right knee osteoarthritis Discharge diagnosis: Same Attending physician: Dr. Everett Surgical procedures: Right total knee arthroplasty Brief history: Patient is a 74-year-old male with a history of progressive primary right knee osteoarthritis. At this point patient has failed conservative treatment measures and has opted to proceed with a elective right total knee arthroplasty. Hospital course: Details of patient's surgery can be found in operative report. Patient tolerated the procedure well and was subsequently transported to orthopedic floor. Patient's orthopeidc and medical care was provided daily. Patient had daily laboratory tests performed for evaluation of overall blood counts. Patient had daily physical therapy to include strengthening range of motion as well as education with walker ambulation. Patient was treated with aspirin for their postoperative DVT prophylaxis during their inpatient stay. Patient was noted to have a relatively uneventful postoperative course. Patient reported satisfactory pain control with oral pain medications by postoperative day 1. Patient showed satisfactory progress with physical therapy. Patient moved steadily through the program and had no difficulty meeting the goals by postoperative day 1. Given patient's otherwise satisfactory course and having met physical therapy goals, plan is to discharge patient home with health se rvices on postoperative day 1. Discharge condition/disposition: Patient will be discharged home with health services in stable condition. Discharge medications: Instructions are given on resumption of patient's normal daily medications per primary care recommendation, in addition patient will be prescribed Indian; senna; take aspirin 80 mg twice a day for 4 weeks once home. Discharge instructions: 1. Wound care and infection precautions, keep incision dry and covered while showering, no lotions, creams, moisturizers. No soaking, tubs, pools, hottubs. Do not scrub over the incision. 2. Weight-bear as tolerated with walker / cane until follow-up. 3. Ice and elevate when necessary. Do not exceed 20 minutes per hour with ice pack. 4. Utilize compression sleeve until seen at first follow up appointment. 5. Visiting nursing care. 6. Home physical therapy including home CPM. 7. Pain meds and anticoagulants per prescription. 8. Pain medication has potential to cause constipation. Increase oral fluid and fiber intake. Contact primary care provider if you have not had a bowel movement within 48 hours after discharge 9. No anti-inflammatory medication until discussed at first post operative visit, this including Motrin, Aleve, Mobic, Diclofenac. 10. Follow up in office at 2 weeks postop with Osbaldo Mackenzie PA-C / Thomas Gerber PA-C 11. Follow up with your primary care doctor 7-10 days after discharge. 12. Contact [facility] with any questions, . Assessment: Right knee osteoarthritis Procedures: Right total knee arthroplasty Patient Condition at Discharge: Good Plan - Discharge Summary Discharge Rx Participant: No New Discharge Prescriptions: New Sennosides/Docusate Sodium [Senna Plus 8.6-50 mg Softgel] 1 each PO DAILY #20 capsule HYDROcodone/APAP 7.5-325MG [Indian 7.5-325] 1 - 2 tab PO Q6HR PRN #32 tab PRN Reason: Pain Continue Pnv No.95/Ferrous Fum/Folic AC [ Multivitamin Tablet] 1 each PO DAILY [place]-3 Fatty Acids/Fish Oil [Fish Oil 1,000 mg Softgel] 2,400 each PO DAILY Glucosam/Guy-Msm1/C/Niranjan/Bosw [Glucosamine-Chondroitin Tablet] 2 each PO DAILY Diphenoxylate HCl/Atropine [Lomotil 2.5-0.025 mg Tablet] 1 - 2 tab PO QID PRN PRN Reason: stools Simvastatin [Zocor] 10 mg PO HS Discharge Medication List Glucosam/Guy-Msm1/C/Niranjan/Bosw [Glucosamine-Chondroitin Tablet] 2 each PO DAILY 08/17/18 [History] [place]-3 Fatty Acids/Fish Oil [Fish Oil 1,000 mg Softgel] 2,400 each PO DAILY 08/17/18 [History] Pnv No.95/Ferrous Fum/Folic AC [ Multivitamin Tablet] 1 each PO DAILY 08/17/18 [History] Diphenoxylate HCl/Atropine [Lomotil 2.5-0.025 mg Tablet] 1 - 2 tab PO QID PRN 01/07/25 [History] Simvastatin [Zocor] 10 mg PO HS 01/07/25 [History] HYDROcodone/APAP 7.5-325MG [Indian 7.5-325] 1 - 2 tab PO Q6HR PRN #32 tab 01/14/25 [Rx] Sennosides/Docusate Sodium [Senna Plus 8.6-50 mg Softgel] 1 each PO DAILY #20 capsule 01/14/25 [Rx] Follow up Appointment(s)/Referral(s): Kota Mackenzie PAC [PHYSICIAN [facility]] - 2 Weeks Residential Home,Health [NON-STAFF] - As Needed [facility]Clinic [REFERRING] - 1 Week Activity/Diet/Wound Care/Special Instructions: Orthopedic Discharge Instructions: 1. Wound care and infection precautions, keep incision dry and covered while showering, no lotions, creams, moisturizers. No soaking, pools, hot tubs. Do not scrub over incision. 2. Weight-bear as tolerated with walker / cane until follow-up. 3. Ice and elevate when necessary. Do not exceed 20 minutes per hour with ice pack. 4. Utilize compression sleeve until seen at first follow up appointment. 5. Pain meds and anticoagulants per prescription. 6. Pain medication has potential to cause constipation. Increase oral fluid and fiber intake. Contact primary care provider if you have not had a bowel movement within 48 hours after discharge. 7. No anti-inflammatory medication until discussed at first post operative visit, this including Motrin, Aleve, Mobic, Diclofenac. 8. Follow up in office at 2 weeks postop with Osbaldo Mackenzie PA-C/Thomas Gerber PA-C 9. Follow up with your primary care doctor 7-10 days after discharge. 10. Contact [facility] with any questions, . Wound care instructions: 1. Okay to remove surgical dressing as of 01/22/2025 2. After removal of dressing, okay to shower directly over the incision Discharge Disposition: HOME WITH HOME HEALTH SERVICES
--- NOTE | 2025-01-14 12:35 | P.PN ---
Subjective Progress Note Date: 01/14/25 Principal diagnosis: Right knee osteoarthritis Patient was seen at bedside this morning sitting up in chair with dressing and pain ball present to the right lower extremity. Patient says he did get up with therapy this morning walked around the room and into the hallway. Patient says he does need a walker for home. Patient says he has urinated since surgery yesterday without any issues. Patient says pain is controlled with oral medication. Patient is looking forward to going home later today. He denies any other issues at this time. Objective - Vital Signs Vital signs: Vital Signs Temp 98.1 F 01/14/25 07:04 Pulse 71 01/14/25 09:20 Resp 18 01/14/25 09:20 BP 111/66 01/14/25 07:04 Pulse Ox 95 01/14/25 07:04 FiO2 Intake & Output 01/13/25 01/14/25 01/14/25 18:59 06:59 18:59 Intake Total 1051 240 Output Total 495 Balance 556 240 Weight 112.2 kg Intake: IV 1051 Oral 240 Output: Urine 450 Estimated Blood Loss 45 Other: Voiding Method Urinal Toilet # Voids 2 - Exam Right knee: Incision is clean, dry, and intact. The silver foam dressing is in good condition. There is minimal soft tissue swelling and ecchymosis surrounding the medial and lateral aspects of the incision. Calf is soft, no tenderness with palpation. Plantar flexion, dorsiflexion, EHL, FHL are intact. Sensory exam to light touch throughout the extremity is intact, dorsal pedis pulses 2+. - Labs CBC & Chem 7: 01/14/25 03:31 Labs: Abnormal Lab Results - Last 24 Hours (Table) 01/14/25 Range/Units 03:31 WBC 11.4 H (3.8-10.6) k/uL RBC 3.73 L (4.30-5.90) m/uL Hgb 12.1 L (13.0-17.5) gm/dL Hct 38.2 L (39.0-53.0) % MCV 102.4 H (80.0-100.0) fL Neutrophils # 9.5 H (1.3-7.7) k/uL Assessment and Plan Assessment: 1. Right knee osteoarthritis -Postop day 1 status post right total knee arthroplasty Plan: 1. Right knee osteoarthritis -right total knee arthroplasty performed yesterday, 01/13/2025. Patient stable bedside this morning. Patient did do well with therapy this morning. Prescription for walker was signed. Pain under well-controlled. Discharge home to day with health services. 2. Appreciate medical management 3. Pain management -[place] 4. DVT prophylaxis -aspirin 81 mg twice daily x 30 days once home 5. GI prophylaxis - senna 6. PT/OT -weightbearing as tolerated with walker and assistance as needed 7. Encourage incentive spirometer use 8. Discharge planning -home today with health services. Time with Patient: Less than 30
== END 2025-01-14 14:10 | disposition home health service (06) ==
LOC: OR 05:39 → 4SSUR 09:54 → OR 01-14 14:10
PROVIDERS: ATTEND Orthopaedic Surgery
DX: M17.11 Unilateral primary osteoarthritis, right knee (principal); E78.5 Hyperlipidemia, unspecified; G89.18 Other acute postprocedural pain; I10 Essential (primary) hypertension; I25.10 Atherosclerotic heart disease of native coronary artery without angina pectoris; Z79.82 Long term (current) use of aspirin; Z79.899 Other long term (current) drug therapy; Z86.16 Personal history of COVID-19; Z87.891 Personal history of nicotine dependence; Z90.49 Acquired absence of other specified parts of digestive tract
CPT/HCPCS: 97161; 64999; 64448; 85025; 73560; 27447; C1776; C1713 ×2; C1751; J2250; J1100; J0690 ×2; J2405; J2795; J1171